=== PATIENT | male | born 1975 | race Caucasian/White ===

== ENCOUNTER 2024-07-12 12:20 | Outpatient (CLI) | payer OTHER, SELFPAY | END 2024-07-12 12:21 | disposition home or self-care (01) | LOC: NFLDREF 07-14 16:50 | PROVIDERS: Visit Provider Family Medicine | DX: R82.90 Unspecified abnormal findings in urine (principal) | CPT/HCPCS: 87086 ==

== ENCOUNTER 2024-07-27 08:57 | Outpatient (CLI) | payer OTHER, SELFPAY | END 2024-07-27 08:58 | disposition home or self-care (01) | LOC: NFLDREF 07-31 14:52 | PROVIDERS: Visit Provider Emergency Medicine | DX: Z00.00 Encounter for general adult medical examination without abnormal findings (principal); I10 Essential (primary) hypertension; E78.5 Hyperlipidemia, unspecified; R53.83 Other fatigue; R79.89 Other specified abnormal findings of blood chemistry; Z80.42 Family history of malignant neoplasm of prostate; Z12.5 Encounter for screening for malignant neoplasm of prostate | CPT/HCPCS: 80053; 80061; 84403; 84443; G0103 ==

== ENCOUNTER 2024-10-03 09:09 | Outpatient (CLI) | payer OTHER, SELFPAY | END 2024-10-03 09:10 | disposition home or self-care (01) | LOC: LKVREF 09:10 | PROVIDERS: PCP Emergency Medicine; Visit Provider Emergency Medicine | DX: R53.83 Other fatigue (principal) | CPT/HCPCS: 84403 ==